=== PATIENT | female | born 1950 | race African-American/Black ===

== ENCOUNTER 2016-12-21 00:26 | Emergency (ER) | payer OTHER, MEDICARE ==
[~2016-12-21] VITALS: Ht 162.6 cm; Wt 70.3 kg
[2016-12-21 00:26] VITALS: BP_SYST 157
--- NOTE | 2016-12-21 00:26 | NUR ---
Patient to ER bed 4 to gown for evaluation. Side rails up. Report given to PAULETTE KUMAR.
--- NOTE | 2016-12-21 00:40 | NUR ---
Pt AOx4, ambulatory, presents to ED with complaint of congestion and difficulty breathing. No acute distress noted at this time. O2 sat 98% on RA. Daughter at bedside. Will continue to monitor.
--- NOTE | 2016-12-21 01:18 | NUR ---
MD Gabriel at bedside examining patient.
[2016-12-21] MEDS ORDERED: methylPREDNISolone SOD SUCC 500 MG/VIAL (Solu-MEDROL) IV ONE (01:45)
[2016-12-21] MEDS ORDERED: LEVALBUTEROL HCL 0.63 MG/3 ML VIAL.NEB INH ONE ×3 (01:45→04:00)
[2016-12-21 02:12] LABS: ABG TOTAL HEMOGLOBIN 13.3 G/dL (12.0-18.0); BLOOD GAS BASE EXCESS 3.2 mmol/L (-3.0-3.0); BLOOD GAS COHb% 0.7 % (0.5-1.5); BLOOD GAS HHB 4.5 % (0.0-6.0); BLOOD GAS PH 7.425 (7.350-7.450); BLOOD O2Hb% 94.1 % (94.0-97.0)
--- NOTE | 2016-12-21 02:36 | NUR ---
# 22 gauge angiocath placed to right hand. Use of asceptic technique. Opsite placed over site. Blood return noted. Flushed with 10 cc of normal saline. No evidence of infiltration noted. Patient tolerated well.
--- NOTE | 2016-12-21 03:20 | NUR ---
No adverse reactions noted after medication administration. Will continue to monitor.
[2016-12-21 03:21] LABS: BASOPHILS % (AUTO) 0.5 % (0.0-2.0); EOSINOPHILS # (AUTO) 0.5 K/uL (0.0-0.4); EOSINOPHILS % (AUTO) 6.6 % (0.0-4.0); HEMATOCRIT 39.6 % (36-48); HEMOGLOBIN 12.9 g/dL (12.0-16.0); LYMPHOCYTES # (AUTO) 2.7 K/uL (1.0-5.5); LYMPHOCYTES % (AUTO) 39.1 % (20.5-51.5); MEAN CORPUSCULAR HEMOGLOBIN 27 pg (27-31); MEAN CORPUSCULAR HGB CONC 33 % (32-36); MEAN CORPUSCULAR VOLUME 82 fL (79.0-98.0); MONOCYTES # (AUTO) 0.6 K/uL (0.0-1.0); MONOCYTES % (AUTO) 8.4 % (1.7-9.3); NEUTROPHILS # (AUTO) 3.1 K/uL (1.8-7.7); NEUTROPHILS % (AUTO) 45.4 % (40.0-70.0); PLATELET COUNT (AUTO) 226 K/uL (130-430); RED BLOOD CELL COUNT(AUTO) 4.81 MIL/uL (4.2-6.2); RED CELL DISTRIBUTION WIDTH 14.1 % (9.0-15.0); WHITE BLOOD COUNT (AUTO) 6.9 K/uL (4.8-10.8)
[2016-12-21 03:32] LABS: CALCIUM 9.3 mg/dL (8.4-11.0); CREATININE 1.05 mg/dL (0.55-1.30); POTASSIUM 3.7 mmol/L (3.5-5.1)
[2016-12-21 03:37] LABS: TOTAL BILIRUBIN 0.4 mg/dL (0.0-1.0); TOTAL PROTEIN, SERUM 8.7 g/dL (6.4-8.3)
[2016-12-21 03:44] LABS: PROTHROMBIN TIME 10.5 SECS (9.5-12.5)
[2016-12-21 03:58] LABS: CKMB RELATIVE INDEX 0.4 (0.0-2.9)
[2016-12-21 04:25] VITALS: BP_SYST 109
--- NOTE | 2016-12-21 04:25 | NUR ---
Patient given written and verbal discharge instructions and verbalizes understanding. ER MD discussed with patient the results and treatment provided. Patient in stable condition. ID arm band removed. IV catheter removed intact and dressing applied, no active bleeding. Rx of Xopenex and Prednisone given. Patient educated on pain management and to follow up with PMD. Pain Scale 0/10. Opportunity for questions provided and answered.
== END 2016-12-21 04:25 | disposition home or self-care (01) ==
LOC: SED 00:26
DX: J45.909 Unspecified asthma, uncomplicated (principal); J44.9 Chronic obstructive pulmonary disease, unspecified; I10 Essential (primary) hypertension; Z90.710 Acquired absence of both cervix and uterus; Z88.0 Allergy status to penicillin; Z88.2 Allergy status to sulfonamides; Z88.8 Allergy status to other drugs, medicaments and biological substances; Z88.1 Allergy status to other antibiotic agents
CPT/HCPCS: 36415; 36600; 71010; 80053; 82550-TC; 82553-TC; 82803-TC; 83880; 84484; 85025; 85610-TC; 85730-TC; 93005; 94640; 96374; 99285